=== PATIENT | female | born 1950 | race Hispanic/Latino ===

== ENCOUNTER 2016-10-01 06:50 | Day surgery (SDC) | payer MEDICARE, MEDICAID ==
[2015-05-16 12:45] VITALS: BMI 36.9
[2016-10-01] MEDS ORDERED: Lactated Ringer's 1,000 ML IV ONE (08:48)
--- NOTE | 2016-10-01 08:48 | CP.SDSHP ---
Same Day Surgery H & P - History Proposed Procedure: colonoscopy Pre-Op Diagnosis: screening for colon cancer - Previous Medical/Surgical History Cardiac: Hypertension, Other (hyperlipidemia, ) Endocrine/Metabolic: Thyroid Disease, Obesity Neuro: Backaches Misc: Other (fatty liver, L/S disc disease, Cervical disc disease) Pain: 2.Mild Pain Previous Surgical History: Gastric sleeve 2016 - Allergies Allergies: Allergies No Known Allergies Allergy (Verified 12/14/14 10:01) - Physical Exam Vital Signs: Vital Signs 10/01/16 07:46 Temperature 97 F L Pulse Rate 79 Respiratory 20 Rate Blood Pressure 141/76 O2 Sat by Pulse 97 Oximetry Mental Status: Alert & Oriented x3 Neuro: WNL Heart: WNL Lungs: WNL GI: WNL - Impression Impression: screening for colon cancer Pt. Evaluated Today:Candidate for Anesthesia & Procedure: Yes - Date & Time Date: 10/01/16 Time: 08:48 Short Stay Discharge - Short Stay Discharge Admitting Diagnosis/Reason for Visit: ENCOUNTER FOR SCREENING FOR MALIGNANT NEOPLASM OF Disposition: HOME/ ROUTINE
[2016-10-01] MEDS ORDERED: Propofol 10 mg/ml Inj (20 ML) ONE ×2 (08:51→09:06)
[2016-10-01] MEDS ORDERED: Lidocaine Hydrochloride 5 ML INJ ONE (08:51)
[2016-10-01 09:45] VITALS: TEMP 96.8
[2016-10-01 12:14] VITALS: O2SAT 100
[2016-10-01 12:15] VITALS: BP 153/73; PULSE 65; RESP 11
== END 2016-10-01 14:52 | disposition home or self-care (01) ==
LOC: C.ENDO 06:50
PROVIDERS: ATTEND Internal Medicine Gastroenterology
DX: K57.90 Diverticulosis of intestine, part unspecified, without perforation or abscess without bleeding (principal); K64.8 Other hemorrhoids
CPT/HCPCS: 45378; J2704; J7120

== ENCOUNTER 2017-08-04 22:30 | Emergency (ER) | payer OTHER ==
[2017-08-04 22:30] VITALS: BMI 36.9
[2017-08-04 23:00] VITALS: BP 128/83; PULSE 80; RESP 14; TEMP 99.1; O2SAT 99
--- NOTE | 2017-08-04 23:14 | C.PDOC ---
History Of Present Illness 67 y/o female presents to the ED for evaluation of rash for 2 weeks. Seen by PMD for poison fifi rash, and given steroids and ointment. Although rash has moderately improved, patient is concerned that it has not completely gone away. Otherwise denies any itching, fever, or chills. Time Seen by Provider: 08/04/17 23:03 Chief Complaint (Nursing): Abnormal Skin Integrity History Per: Patient History/Exam Limitations: no limitations Onset/Duration Of Symptoms: Days Current Symptoms Are (Timing): Still Present Past Medical History Reviewed: Historical Data, Nursing Documentation, Vital Signs Vital Signs: Last Vital Signs Temp 99.1 F 08/04/17 22:56 Pulse 80 08/04/17 22:56 Resp 14 08/04/17 22:56 BP 128/83 08/04/17 22:56 Pulse Ox 99 08/05/17 02:24 - Medical History PMH: Arthritis, Back Problems (back injury years ago), Gastritis (H/O), HTN, Hypercholesterolemia, Hypothyroidism Denies: Chronic Kidney Disease Surgical History: Endoscopy - [facility] Procedures APPLICATION OF SPLINT (06/22/14) EXCISION OF STOMACH, PERCUTANEOUS ENDOSCOPIC APPROACH, VERT (05/25/15) INSPECTION OF UPPER INTESTINAL TRACT, ENDO (05/25/15) REPAIR LEFT DIAPHRAGM, PERCUTANEOUS ENDOSCOPIC APPROACH (05/25/15) REPAIR RIGHT DIAPHRAGM, PERCUTANEOUS ENDOSCOPIC APPROACH (05/25/15) Family History: States: Unknown Family Hx - Social History Hx Tobacco Use: No Hx Alcohol Use: No Hx Substance Use: No Review Of Systems Constitutional: Negative for: Fever, Chills Skin: Positive for: Rash. Negative for: Other (itching) Physical Exam - Physical Exam Appears: Non-toxic, No Acute Distress Skin: Warm, Dry, Rash (Hyperpigmented patchy discoloration to right lower leg and right arm; No erythematous lesions, vesicles, or warmth) Head: Atraumatic, Normacephalic Eye(s): bilateral: Normal Inspection, PERRL, EOMI Oral Mucosa: Moist Neck: Trachea Midline, Supple Chest: Symmetrical Respiratory: No Accessory Muscle Use, No Wheezing Extremity: Bilateral: Atraumatic, Normal ROM Neurological/Psych: Oriented x3, Normal Speech, Normal Motor, Normal Sensation Gait: Steady ED Course And Treatment O2 Sat by Pulse Oximetry: 99 (RA) Pulse Ox Interpretation: Normal Progress Note: Patient reassured, advised to continue care with topical cream and follow up with PMD for further evaluation. Disposition Counseled Patient/Family Regarding: Diagnosis, Need For Followup, Rx Given - Disposition Referrals: Akiko Starks DO [[facility]] - Disposition: HOME/ ROUTINE Disposition Time: 23:12 Condition: STABLE Additional Instructions: Continue current topical ointment May take claritin if itchy Return to ER if worse Instructions: Skin Rash (DC) Forms: [employer] (Turkish) - Clinical Impression Clinical Impression: Skin rash, Contact dermatitis due to poison fifi - PA / PROFESSIONAL [employer] / Resident Statement / has reviewed & agrees with the documentation as recorded. - Scribe Statement The provider has reviewed the documentation as recorded by the Scribe (Omayra Devine) All medical record entries made by the Scribe were at my direction and personally dictated by me. I have reviewed the chart and agree that the record accurately reflects my personal performance of the history, physical exam, medical decision making, and the department course for this patient. I have also personally directed, reviewed, and agree with the discharge instructions and disposition.
== END 2017-08-04 23:38 | disposition home or self-care (01) ==
LOC: C.ER 22:30
DX: L23.7 Allergic contact dermatitis due to plants, except food (principal)

== ENCOUNTER 2018-04-17 19:15 | Emergency (ER) | payer OTHER ==
[2018-04-17 19:15] VITALS: BMI 36.9
[2018-04-17 19:33] VITALS: RESP 20
[2018-04-17] MEDS ORDERED: Sodium Chloride 0.9% 1,000 ML IV ONE (19:59)
--- NOTE | 2018-04-17 20:15 | C.PDOC ---
History Of Present Illness Patient is a 68 year old female, with a PMHx of gastric sleeve 2017 with significant weight loss, who presents to the ED c/o shooting colicky abdominal pain that began today. Patient states that she was helping friends move yesterday and believe she may have damaged something inside by exerting herself. She denies any CP, SOB, nausea, vomiting, or diarrhea. Time Seen by Provider: 04/17/18 19:55 Chief Complaint (Nursing): Abdominal Pain History Per: Patient History/Exam Limitations: no limitations Onset/Duration Of Symptoms: Hrs Current Symptoms Are (Timing): Still Present Quality Of Discomfort: "Pain" (colicky abdominal pain ) Associated Symptoms: denies: Nausea, Vomiting, Diarrhea, Chest Pain Recent travel outside of the [place]: No Additional History Per: Patient Past Medical History Reviewed: Historical Data, Nursing Documentation, Vital Signs Vital Signs: Last Vital Signs Temp 97.7 F 04/17/18 19:29 Pulse 93 H 04/17/18 19:29 Resp 20 04/17/18 19:29 BP 153/89 H 04/17/18 19:29 Pulse Ox 98 04/17/18 19:29 - Medical History PMH: Arthritis, Back Problems (back injury years ago), Gastritis (H/O), HTN, Hy percholesterolemia, Hypothyroidism Denies: Chronic Kidney Disease Surgical History: Endoscopy - [facility] Procedures APPLICATION OF SPLINT (06/22/14) EXCISION OF STOMACH, PERCUTANEOUS ENDOSCOPIC APPROACH, VERT (05/25/15) INSPECTION OF UPPER INTESTINAL TRACT, ENDO (05/25/15) REPAIR LEFT DIAPHRAGM, PERCUTANEOUS ENDOSCOPIC APPROACH (05/25/15) REPAIR RIGHT DIAPHRAGM, PERCUTANEOUS ENDOSCOPIC APPROACH (05/25/15) Family History: States: Unknown Family Hx - Social History Hx Tobacco Use: No Hx Alcohol Use: No Hx Substance Use: No - Immunization History Hx Tetanus Toxoid Vaccination: No Hx Influenza Vaccination: No Hx Pneumococcal Vaccination: No Review Of Systems Cardiovascular: Negative for: Chest Pain Respiratory: Negative for: Shortness of Breath Gastrointestinal: Positive for: Abdominal Pain (colicky pain ). Negative for: Nausea, Vomiting, Diarrhea Physical Exam - Physical Exam Appears: Non-toxic, No Acute Distress, Other (obese) Skin: Normal Color, Warm, Dry Head: Atraumatic, Normacephalic Oral Mucosa: Moist Neck: Normal ROM, Supple Cardiovascular: Rhythm Regular, No Murmur Respiratory: Normal Breath Sounds, No Rales, No Rhonchi, No Wheezing Gastrointestinal/Abdominal: Soft, Other (large panniculus ) ED Course And Treatment - Laboratory Results Result Diagrams: 04/17/18 20:20 04/17/18 20:20 Lab Interpretation: Normal O2 Sat by Pulse Oximetry: 98 (on RA) Pulse Ox Interpretation: Normal - Radiology CXR: Interpreted by Me CXR Interpretation: Yes: No Acute Disease - Other Rad abd x 2 X-Ray: Interpreted by Me (+FOS) Reevaluation Time: 22:10 Reassessment Condition: Improved Medical Decision Making Medical Decision Making: Plan: Labs Obstructive Series Urinalysis Toradol 30mg IVP IV Fluids acute on chronic constipation s/p gastric sleeve 2017 normal labs Disposition Doctor Will See Patient In The: Office Counseled Patient/Family Regarding: Studies Performed, Diagnosis - Disposition Disposition: HOME/ ROUTINE Disposition Time: 22:11 Condition: GOOD Forms: [employer] (Northern Irish) - Clinical Impression Clinical Impression: Generalized colicky abdominal pain - Scribe Statement The provider has reviewed the documentation as recorded by the Scribjuliano Peres All medical record entries made by the Scribe were at my direction and personally dictated by me. I have reviewed the chart and agree that the record accurately reflects my personal performance of the history, physical exam, medical decision making, and the department course for this patient. I have also personally directed, reviewed, and agree with the discharge instructions and disposition.
[2018-04-17 20:27] LABS: BASO # 0.1 K/uL (0.0-0.2); BASO % 0.7 % (0.0-2.0); EOS # 0.1 K/uL (0.0-0.7); EOS % 0.6 % (0.0-4.0); HEMOGLOBIN 13.1 g/dL (11.0-16.0); LYMPH # 1.7 K/uL (1.0-4.3); LYMPH % 20.4 % (20.0-40.0); MEAN CELL VOLUME 98.4 fL (81.0-99.0); MEAN CORPUSCULAR HEMOGLOBIN 31.9 pg (27.0-31.0); MEAN CORPUSCULAR HGB CONC 32.4 g/dL (33.0-37.0); MEAN PLATELET VOLUME 8.9 fL (7.2-11.7); MONO # 0.5 K/uL (0.0-0.8); MONO % 5.5 % (0.0-10.0); NEUT # 6.1 K/uL (1.8-7.0); NEUT % 72.8 % (50.0-75.0); RBC 4.12 Mil/uL (3.80-5.20); RED CELL DISTRIBUTION WIDTH 13.1 % (11.5-14.5); WHITE BLOOD COUNT 8.3 K/uL (4.8-10.8)
[2018-04-17 20:41] LABS: ALB/GLOB RATIO 1.6 (1.0-2.1); BLOOD UREA NITROGEN 19 mg/dL (7-17); CALCIUM 9.4 mg/dl (8.6-10.4); GFR NON-AFRICAN AMERICAN > 60; LIPASE 95 U/L (23-300)
[2018-04-17 20:43] LABS: ALT/SGPT 20 U/L (9-52); AST/SGOT 47 U/L (14-36)
[2018-04-17] MEDS ORDERED: Magnesium Citrate Oral SOL (300 ml) PO ONE (22:16)
[2018-04-17 23:04] VITALS: BP 139/87; PULSE 84; TEMP 98.2; O2SAT 97
--- NOTE | 2018-04-18 16:12 | RAD ---
Date of service: 04/17/2018 PROCEDURE: Radiographs of the chest and abdomen (obstructive series) HISTORY: Abdominal pain. Patient also has history gastric sleeve 2017. COMPARISON: No prior. TECHNIQUE: AP radiograph of the chest, with upright and supine radiographs of the abdomen. FINDINGS: CHEST: Lungs: Cluster of tiny densities seen in the right of medial upper lobe which may represent overlying confluence of shadow artifact related to anterior 1st rib Cardiovascular: Normal size heart. No pulmonary vascular congestion. No aortic atherosclerotic calcification present Pleura: No pleural fluid. No pneumothorax. Other findings: None. ABDOMEN AND PELVIS: Bowel: No evidence of mechanical obstruction. Findings consistent with mild fecal retention/constipation. Free air: None. Bones: Unremarkable. Other findings: . metallic clips left upper abdomen consistent with this patient's history of gastric sleeve procedure Multiple on note made of a coarse calcification left aspect of the pelvis likely representing calcified uterine fibroid IMPRESSION: No acute infiltrates. Findings consistent with constipation.
== END 2018-04-17 23:02 | disposition home or self-care (01) ==
LOC: C.ER 19:15
DX: R10.84 Generalized abdominal pain (principal); I10 Essential (primary) hypertension; E78.00 Pure hypercholesterolemia, unspecified; E03.9 Hypothyroidism, unspecified; Z98.84 Bariatric surgery status
CPT/HCPCS: 74022; 80053; 83690; 85025; 96374; 99283; J1885; J7030

== ENCOUNTER 2018-06-17 12:53 | Outpatient (CLI) | payer OTHER | END 2018-06-17 12:54 | disposition home or self-care (01) | LOC: C.RADIC 12:53 ==

== ENCOUNTER 2018-07-10 12:24 | Outpatient (CLI) | payer OTHER | END 2018-07-10 12:25 | disposition home or self-care (01) | LOC: C.MAMMO 12:24 | DX: Z12.39 Encounter for other screening for malignant neoplasm of breast (principal) ==